=== PATIENT | female | born 1980 | race Caucasian/White ===

== ENCOUNTER 2016-04-05 07:10 | Emergency (ER) | payer SELFPAY ==
[~2016-04-05] VITALS: Ht 170.2 cm; Wt 165.0 kg
[~2016-04-05 07:10] MED LIST: SUMA25TA9 PO
[2016-04-05] MEDS ORDERED: SODIUM CHLORIDE 0.9% 1,000 ML IV ONE (10:25)
[2016-04-05] MEDS ORDERED: SUMAtriptan SUCCINATE 25 MG TABLET PO ONE (10:30)
[2016-04-05] MEDS ORDERED: ONDANSETRON HCL 4 MG/2 ML VIAL IVP ONE (10:30)
[2016-04-05] MEDS ORDERED: DiphenhydrAMINE HCL 50 MG/ML VIAL IVP ONE (10:30)
[2016-04-05] MEDS ORDERED: KETOROLAC TROMETHAMINE 30 MG/ML VIAL IVP ONE (11:15)
[2016-04-05 11:48] VITALS: BP 105/78
== END 2016-04-05 12:02 | disposition home or self-care (01) ==
LOC: EMS 07:10
DX: G43.909 Migraine, unspecified, not intractable, without status migrainosus (principal); R11.2 Nausea with vomiting, unspecified; H53.149 Visual discomfort, unspecified; F17.210 Nicotine dependence, cigarettes, uncomplicated
CPT/HCPCS: 81025; 96361; 96374; 96375; 99284; 99406; J1200; J1885; J2405; J7030

== ENCOUNTER 2016-05-30 02:45 | Emergency (ER) | payer OTHER ==
[~2016-05-30] VITALS: Ht 167.6 cm; Wt 68.2 kg
[2016-05-30 05:10] VITALS: BP 116/76
[2016-05-30] MEDS ORDERED: ALBUTEROL SULFATE HFA 90 MCG/PUFF 8 GM INHALER IH ONE (05:15)
== END 2016-05-30 05:41 | disposition home or self-care (01) ==
LOC: EMS 02:46
DX: J44.9 Chronic obstructive pulmonary disease, unspecified (principal); F17.210 Nicotine dependence, cigarettes, uncomplicated
CPT/HCPCS: 81025; 94640; 99283; 99406; J3535

== ENCOUNTER 2016-06-25 14:14 | Emergency (ER) | payer OTHER ==
[~2016-06-25] VITALS: Ht 170.2 cm; Wt 75.9 kg
[2016-06-25 15:09] VITALS: BP 111/68
[2016-06-25] MEDS ORDERED: LORazepam 1 MG TABLET PO ONE (15:15)
[2016-06-25] MEDS ORDERED: SUMAtriptan SUCCINATE 25 MG TABLET PO ONE (15:15)
== END 2016-06-25 15:29 | disposition home or self-care (01) ==
LOC: EMS 14:15
DX: G43.909 Migraine, unspecified, not intractable, without status migrainosus (principal); F31.9 Bipolar disorder, unspecified; F41.9 Anxiety disorder, unspecified; F17.210 Nicotine dependence, cigarettes, uncomplicated
CPT/HCPCS: 99283; 99406

== ENCOUNTER 2016-11-19 18:16 | Emergency (ER) | payer OTHER ==
[~2016-11-19] VITALS: Ht 170.2 cm; Wt 75.5 kg
[2016-11-19] MEDS ORDERED: LORazepam 1 MG TABLET PO ONE (20:15)
[2016-11-19] MEDS ORDERED: SUMAtriptan SUCCINATE 25 MG TABLET PO ONE (20:15)
[2016-11-19 21:16] VITALS: BP 118/66
== END 2016-11-19 21:18 | disposition home or self-care (01) ==
LOC: EMS 18:17
DX: G43.909 Migraine, unspecified, not intractable, without status migrainosus (principal)
CPT/HCPCS: 99283

== ENCOUNTER 2016-12-09 14:11 | Emergency (ER) | payer OTHER ==
[~2016-12-09] VITALS: Ht 170.2 cm; Wt 75.9 kg
[2016-12-09] MEDS ORDERED: ONDANSETRON HCL 4 MG TABLET PO ONE (14:45)
[2016-12-09] MEDS ORDERED: LORazepam 1 MG TABLET PO ONE (14:45)
[2016-12-09] MEDS ORDERED: SUMAtriptan SUCCINATE 6 MG/0.5 ML VIAL SQ ONE (14:45)
[2016-12-09 16:42] VITALS: BP 136/90
== END 2016-12-09 16:46 | disposition home or self-care (01) ==
LOC: EMS 14:21
DX: G43.909 Migraine, unspecified, not intractable, without status migrainosus (principal); F17.210 Nicotine dependence, cigarettes, uncomplicated
CPT/HCPCS: 96372; 99283; J3030; Q0162

== ENCOUNTER 2017-04-16 19:43 | Emergency (ER) | payer OTHER ==
[~2017-04-16] VITALS: Ht 170.2 cm; Wt 71.0 kg
[2017-04-16] MEDS ORDERED: SUMAtriptan SUCCINATE 6 MG/0.5 ML VIAL SQ ONE (20:30)
[2017-04-16 21:26] VITALS: BP 116/70
== END 2017-04-16 21:52 | disposition home or self-care (01) ==
LOC: EMS 19:45
DX: G43.909 Migraine, unspecified, not intractable, without status migrainosus (principal); F17.210 Nicotine dependence, cigarettes, uncomplicated
CPT/HCPCS: 96372; 99283; 99406; J3030

== ENCOUNTER 2017-04-30 01:06 | Emergency (ER) | payer OTHER ==
[~2017-04-30] VITALS: Ht 172.7 cm; Wt 76.0 kg
[2017-04-30 02:20] LABS: BASOPHILS % (AUTO) 0.6 % (0.0-2.0); HEMATOCRIT 44.7 % (36-46); HEMOGLOBIN 15.6 g/dL (12.0-16.0); LYMPHOCYTES # (AUTO) 2.5 K/uL (1.0-4.8); LYMPHOCYTES % (AUTO) 27.4 % (22.0-44.0); MEAN CORPUSCULAR HEMOGLOBIN 30.5 pg (26.0-34.0); MEAN CORPUSCULAR HGB CONC 34.9 G/dL (31.0-37.0); MEAN CORPUSCULAR VOLUME 87 fL (80-100); MONOCYTES # (AUTO) 0.4 K/uL (0.1-1.0); MONOCYTES % (AUTO) 4.6 % (2.0-9.0); NEUTROPHILS % (AUTO) 66.4 % (40.0-70.0); PLATELET COUNT (AUTO) 258 K/uL (150-450); RED BLOOD CELL COUNT(AUTO) 5.11 MIL/uL (4.00-5.20); RED CELL DISTRIBUTION WIDTH 12.9 % (11.5-14.5)
[2017-04-30 02:32] LABS: ANION GAP 10 mmol/L (8-16); CALCIUM, TOTAL 8.9 mg/dL (8.8-10.5); CARBON DIOXIDE 28 mmol/L (22-29); CHLORIDE 101 mmol/L (98-107); CREATININE 0.42 mg/dL (0.60-1.30); GLOMERULAR FILTR. RATE CALC > 60 mL/min (>60); GLUCOSE,RANDOM 89 mg/dL (70-110); POTASSIUM 3.6 mmol/L (3.5-5.1); SODIUM SERUM 139 mmol/L (136-145); UREA NITROGEN, BLOOD 9 mg/dL (7-18)
[2017-04-30 02:36] LABS: ALANINE AMINOTRANSFERASE 177 U/L (12-78); ALBUMIN 3.7 g/dL (3.4-5.0); ALKALINE PHOSPHATASE 84 U/L (46-116); ASPARTATE AMINOTRANSFERASE 73 U/L (15-37); BILIRUBIN,TOTAL 0.8 mg/dL (0.1-1.0); LIPASE 57 U/L (73-393); TOTAL PROTEIN, SERUM 7.3 g/dL (6.4-8.2)
[2017-04-30] MEDS ORDERED: SODIUM CHLORIDE 0.9% 1,000 ML IV ONE (04:00)
[2017-04-30] MEDS ORDERED: ONDANSETRON HCL 4 MG/2 ML VIAL IVP ONE (04:00)
[2017-04-30 05:41] LABS: APPEARANCE,URINE CLOUDY (CLEAR); BILIRUBIN,URINE NEGATIVE (NEGATIVE); GLUCOSE, URINE (UA) NEGATIVE (NEGATIVE); KETONES,URINE >=80 mg/dL (NEGATIVE); LEUKOCYTE ESTERASE ,URINE NEGATIVE (NEGATIVE); NITRATE,URINE POSITIVE (NEGATIVE); OCCULT BLOOD,URINE NEGATIVE (NEGATIVE); PROTEIN,URINE NEGATIVE (NEGATIVE); UROBILINOGEN,URINE 0.2 mg/dL (<=1.0)
[2017-04-30 05:43] LABS: AMPHET/METH SCREEN,URINE POSITIVE (NEGATIVE); BARBITURATE SCREEN, URINE NEGATIVE (NEGATIVE); BENZODIAZEPINES SCREEN,URINE NEGATIVE (NEGATIVE); CANNABINOID SCREEN,URINE NEGATIVE (NEGATIVE); COCAINE SCREEN,URINE POSITIVE (NEGATIVE); METHADONE SCREEN, URINE NEGATIVE (NEGATIVE); OPIATE SCREEN,URINE NEGATIVE (NEGATIVE)
[2017-04-30 05:46] LABS: PHENCYCLIDINE SCREEN,URINE NEGATIVE (NEGATIVE)
[2017-04-30 06:21] LABS: BACTERIA,URINE Many /HPF (None Seen); RBC,URINE 0-2 /HPF (0-2); SQUAMOUS EPITHELIAL CELL,UR Few /LPF (None Seen); WBC,URINE 0-2 /HPF (0-5)
[2017-04-30 07:01] VITALS: BP 123/68
== END 2017-04-30 07:01 | disposition home or self-care (01) ==
LOC: EMS 01:07
DX: G43.909 Migraine, unspecified, not intractable, without status migrainosus (principal); F14.10 Cocaine abuse, uncomplicated; F15.10 Other stimulant abuse, uncomplicated; N39.0 Urinary tract infection, site not specified; F17.210 Nicotine dependence, cigarettes, uncomplicated; Z71.6 Tobacco abuse counseling; Z79.899 Other long term (current) drug therapy
CPT/HCPCS: 36415; 80053; 80307; 81001; 83690; 84703; 85025; 87077; 87086; 87186; 96374; 99284; 99406; G0480; J2405; J7030

== ENCOUNTER 2017-06-05 00:03 | Emergency (ER) | payer OTHER ==
[~2017-06-05] VITALS: Ht 170.2 cm; Wt 76.4 kg
[2017-06-05] MEDS ORDERED: SUMAtriptan SUCCINATE 6 MG/0.5 ML VIAL SQ ONE (00:30)
[2017-06-05 02:02] VITALS: BP 120/70
== END 2017-06-05 02:04 | disposition home or self-care (01) ==
LOC: EMS 00:04
DX: G43.909 Migraine, unspecified, not intractable, without status migrainosus (principal); F43.9 Reaction to severe stress, unspecified; F17.210 Nicotine dependence, cigarettes, uncomplicated; F14.90 Cocaine use, unspecified, uncomplicated
CPT/HCPCS: 81002; 81025; 96372; 99283; J3030

== ENCOUNTER 2017-07-16 00:47 | Emergency (ER) | payer OTHER ==
[~2017-07-16] VITALS: Ht 170.2 cm; Wt 77.0 kg
[2017-07-16] MEDS ORDERED: SUMAtriptan SUCCINATE 6 MG/0.5 ML VIAL SQ ONE (03:30)
[2017-07-16 04:05] VITALS: BP 129/87
== END 2017-07-16 04:07 | disposition home or self-care (01) ==
LOC: EMS 00:48
DX: G43.909 Migraine, unspecified, not intractable, without status migrainosus (principal); F17.210 Nicotine dependence, cigarettes, uncomplicated; F14.10 Cocaine abuse, uncomplicated; Z79.899 Other long term (current) drug therapy
CPT/HCPCS: 81025; 96372; 99283; 99406; J3030

== ENCOUNTER 2017-08-29 18:43 | Emergency (ER) | payer OTHER ==
[~2017-08-29] VITALS: Ht 170.2 cm; Wt 68.2 kg
[2017-08-29] MEDS ORDERED: SUMAtriptan SUCCINATE 6 MG/0.5 ML VIAL SQ ONE (20:00)
[2017-08-29] MEDS ORDERED: ONDANSETRON HCL 4 MG TABLET PO ONE (20:00)
[2017-08-29 20:23] VITALS: BP 126/79
== END 2017-08-29 20:35 | disposition home or self-care (01) ==
LOC: EMS 18:44
DX: G43.909 Migraine, unspecified, not intractable, without status migrainosus (principal); F17.210 Nicotine dependence, cigarettes, uncomplicated; F14.10 Cocaine abuse, uncomplicated; F31.9 Bipolar disorder, unspecified; Z79.899 Other long term (current) drug therapy
CPT/HCPCS: 81025; 96372; 99283; 99406; J3030; Q0162

== ENCOUNTER 2017-09-30 13:23 | Emergency (ER) | payer OTHER ==
[~2017-09-30] VITALS: Ht 170.2 cm; Wt 75.5 kg
[2017-09-30] MEDS ORDERED: ONDANSETRON HCL 4 MG/2 ML VIAL IM ONE (16:15)
[2017-09-30] MEDS ORDERED: SUMAtriptan SUCCINATE 6 MG/0.5 ML VIAL SQ ONE (16:15)
[2017-09-30 18:03] VITALS: BP 120/80
== END 2017-09-30 18:07 | disposition home or self-care (01) ==
LOC: EMS 13:24
DX: G43.909 Migraine, unspecified, not intractable, without status migrainosus (principal); F14.90 Cocaine use, unspecified, uncomplicated; F17.210 Nicotine dependence, cigarettes, uncomplicated
CPT/HCPCS: 96372; 99284; 99406; J2405; J3030

== ENCOUNTER 2017-10-22 19:56 | Emergency (ER) | payer OTHER | END 2017-10-22 20:08 | disposition left against medical advice (07) | LOC: EMS 19:57 | DX: R51 Headache (principal); Z53.21 Procedure and treatment not carried out due to patient leaving prior to being seen by health care provider ==

== ENCOUNTER 2017-11-17 11:37 | Emergency (ER) | payer OTHER ==
[~2017-11-17] VITALS: Ht 170.2 cm; Wt 75.9 kg
[2017-11-17] MEDS ORDERED: KETOROLAC TROMETHAMINE 60 MG/2 ML VIAL IM ONE (13:30)
[2017-11-17 13:53] VITALS: BP 123/77
== END 2017-11-17 13:57 | disposition home or self-care (01) ==
LOC: EMS 11:38
DX: G43.909 Migraine, unspecified, not intractable, without status migrainosus (principal); F31.9 Bipolar disorder, unspecified; F17.210 Nicotine dependence, cigarettes, uncomplicated; F14.90 Cocaine use, unspecified, uncomplicated; F15.90 Other stimulant use, unspecified, uncomplicated
CPT/HCPCS: 96372; 99283; J1885